=== PATIENT | male | born 1985 | race Caucasian/White ===

== ENCOUNTER 2020-12-06 12:09 | Inpatient (IN) | payer BC ==
[2020-12-06 13:02] LABS: #Basophils 0.1 10x3/uL (0.0-0.2); #Eosinphils 0.2 10x3/uL (0.0-0.5); #Monocytes 0.6 10x3/uL (0.0-1.1); #Neutrophils 3.2 10x3/uL (1.5-8.4); %Basophils 1.3 % (0.0-2.0); %Eosinophils 3.2 % (0.0-6.0); %Lymphocytes 33.1 % (18.0-47.0); %Monocytes 9.2 % (0.0-10.0); %Neutrophils 52.9 % (40.0-75.0); Hemoglobin 11.8 g/dL (13.5-17.5); Mean Corpuscular HGB CONC 34.5 g/dL (32.0-36.0); Mean Corpuscular Hemoglobin 31.4 pg (27.0-33.0); Mean Platelet Volume 11.9 fl (7.4-10.4); Platelet Count 203 10x3/uL (150-450); RBC Distribution Width 12.5 % (11.5-14.5); Red Blood Cell (RBC) Count 3.76 10x6/uL (4.32-5.72)
[2020-12-06 13:29] LABS: ALT (SGPT) 21 U/L (8-55); AST (SGOT) 16 U/L (5-34); Albumin 3.4 g/dL (3.5-5.0); Alkaline Phosphatase 109 U/L (40-110); Anion Gap 21 mmol/L (10-20); BUN (Urea Nitrogen) 24 mg/dL (8.9-20.6); Bilirubin, Total 0.4 mg/dL (0.2-1.2); CK (CPK) 200 U/L (30-200); Calc. Creatinine Clearance 0 mL/min (70-130); Calcium 9.7 mg/dL (7.8-10.44); Carbon Dioxide 21 mmol/L (22-29); Chloride 88 mmol/L (98-107); Globulin 2.4 g/dL (2.4-3.5); Potassium 5.6 mmol/L (3.5-5.1); Protein, Total 5.8 g/dL (6.0-8.3); Sodium 124 mmol/L (136-145)
[2020-12-06 13:32] LABS: Glucose 599 mg/dL (70-105)
[2020-12-06] MEDS ORDERED: Insulin Regular 300 UNITS/3 ML VIAL ONE ×2 (14:22→14:26)
[2020-12-06] MEDS ORDERED: HumaLOG 300 UNITS/3 ML VIAL ONE (14:24)
[2020-12-06 14:34] LABS: Actual Bicarbonate (HCO3v) 22 mEq/L (22-28); Base Excess -2.7 mEq/L (-2.0 to +3.0); Calcium, Ionized (venous) 1.23 mmol/L (1.16-1.32); Chloride (VBG) 90 mmol/L (98-106); Hemoglobin (Hb) 12.7 g/dL (13.2-17.3); Potassium (VBG) 5.05 mmol/L (3.70-5.30); Puncture Site Other Site; RapidComm Collect By lab; Sodium 123.6 mmol/L (133-146)
[2020-12-06 16:07] LABS: SARS-CoV-2 NAA Rapid Test Not Detected (NotDetected)
[2020-12-06] MEDS ORDERED: Ondansetron PF 4 MG/2 ML Vial IVP PRN (16:41)
[2020-12-06] MEDS ORDERED: Senokot S 8.6-50 MG TAB PO PRN (16:41)
[2020-12-06] MEDS ORDERED: Acetaminophen 325 MG TAB PO PRN (16:41)
[2020-12-06] MEDS ORDERED: NS 0.9% w/ 20 MEQ KCL 1,000 ML IV PRN ×2 (16:41)
[2020-12-06] MEDS ORDERED: D5 1/2 NS w/20 mEq KCL 1,000 ML IV PRN (16:41)
[2020-12-06] MEDS ORDERED: Electrolyte Replacement Protocol 1 EACH IVPB PRN (16:41)
[2020-12-06] MEDS ORDERED: Dextrose 5 %-0.45 % NaCl 1,000 ML IV PRN (16:41)
[2020-12-06] MEDS ORDERED: Sodium Chloride 0.9% 1,000 ML IV PRN ×4 (16:41)
[2020-12-06] MEDS ORDERED: Ondansetron ODT 4 MG TAB PO PRN (16:41)
[2020-12-06] MEDS ORDERED: HUMULIN R 100 UNITS in Sodium Chloride 0.9% 100 ML IVPB SCH (16:45)
[2020-12-06 17:05] VITALS: BMI 28.2
[2020-12-06] MEDS ORDERED: Labetalol HCl 100 MG/20 ML VIAL SLOW IVP PRN (17:12)
[2020-12-06] MEDS ORDERED: Amlodipine 5 MG TAB PO SCH (17:30)
[2020-12-06] MEDS ORDERED: Lisinopril 10 MG TAB PO SCH (17:30)
[2020-12-06 17:54] LABS: Anion Gap 12 mmol/L (10-20); BUN (Urea Nitrogen) 15 mg/dL (8.9-20.6); Calc. Creatinine Clearance 180 mL/min (70-130); Calcium 6.8 mg/dL (7.8-10.44); Carbon Dioxide 18 mmol/L (22-29); Chloride 110 mmol/L (98-107); Glucose 187 mg/dL (70-105); Potassium 2.9 mmol/L (3.5-5.1); Sodium 137 mmol/L (136-145)
[2020-12-06] MEDS ORDERED: Potassium Chloride 20 MEQ TAB PO SCH ×2 (18:15→22:00)
[2020-12-06] MEDS ORDERED: Dextrose 5% in Water 1,000 ML IV PRN (18:35)
[2020-12-06] MEDS ORDERED: Dextrose 50% Abboject 50 ML SYRINGE SLOW IVP PRN (18:35)
[2020-12-06] MEDS ORDERED: Lantus 1000 UNITS/10 ML VIAL SC SCH ×2 (19:45→21:00)
[2020-12-06 20:26] LABS: Bilirubin Neg (Negative); Blood, Urine 25 (Negative); Clarity Clear (Clear); Glucose, Urine (Dipstick) >=1000 mg/dL (Negative); Ketone, Urine 50 mg/dL (Negative); Leukocyte Negative (Negative); Nitrite Negative (Negative); Protein, Urine (Dipstick) 500 mg/dl (Neg-Trace); Specific Gravity, Urine 1.015 (1.002-1.036); Urobilinogen Normal mg/dL (Less than 2)
[2020-12-06 20:41] LABS: Bacteria/HPF Rare-Few HPF (None Seen); RBC/HPF 0-3 HPF (0-3); Squamous Epithelial 0-3 HPF (0-3); WBC/HPF 0-3 HPF (0-3)
[2020-12-06] MEDS ORDERED: Gabapentin 300 MG CAP PO SCH (21:00)
[2020-12-06 21:33] LABS: Anion Gap 11 mmol/L (10-20); BUN (Urea Nitrogen) 17 mg/dL (8.9-20.6); Calc. Creatinine Clearance 150 mL/min (70-130); Calcium 8.7 mg/dL (7.8-10.44); Carbon Dioxide 25 mmol/L (22-29); Chloride 101 mmol/L (98-107); Glucose 106 mg/dL (70-105); Potassium 3.8 mmol/L (3.5-5.1); Sodium 133 mmol/L (136-145)
[2020-12-07 01:23] LABS: Anion Gap 13 mmol/L (10-20); BUN (Urea Nitrogen) 16 mg/dL (8.9-20.6); Calc. Creatinine Clearance 156 mL/min (70-130); Calcium 8.3 mg/dL (7.8-10.44); Carbon Dioxide 22 mmol/L (22-29); Chloride 101 mmol/L (98-107); Glucose 168 mg/dL (70-105); Sodium 132 mmol/L (136-145)
[2020-12-07 04:24] LABS: #Basophils 0.1 10x3/uL (0.0-0.2); #Eosinphils 0.3 10x3/uL (0.0-0.5); #Monocytes 0.4 10x3/uL (0.0-1.1); #Neutrophils 1.5 10x3/uL (1.5-8.4); %Basophils 1.4 % (0.0-2.0); %Eosinophils 6.5 % (0.0-6.0); %Lymphocytes 47.2 % (18.0-47.0); %Neutrophils 34.7 % (40.0-75.0); Hemoglobin 10.5 g/dL (13.5-17.5); Mean Corpuscular HGB CONC 34.7 g/dL (32.0-36.0); Mean Corpuscular Hemoglobin 31.5 pg (27.0-33.0); Mean Platelet Volume 11.8 fl (7.4-10.4); Platelet Count 194 10x3/uL (150-450); RBC Distribution Width 12.6 % (11.5-14.5); Red Blood Cell (RBC) Count 3.33 10x6/uL (4.32-5.72); White Blood Cell (WBC) Count 4.3 10x3/uL (3.5-10.5)
[2020-12-07 04:34] LABS: Anion Gap 12 mmol/L (10-20); BUN (Urea Nitrogen) 15 mg/dL (8.9-20.6); Calc. Creatinine Clearance 162 mL/min (70-130); Calcium 8.2 mg/dL (7.8-10.44); Carbon Dioxide 23 mmol/L (22-29); Chloride 100 mmol/L (98-107); Glucose 227 mg/dL (70-105); Potassium 3.9 mmol/L (3.5-5.1); Sodium 131 mmol/L (136-145)
[2020-12-07 05:49] VITALS: BP 127/88; TEMP 97.9
[2020-12-07] MEDS ORDERED: Calcium Carbonate 600 MG + Vit D TAB PO SCH (08:00)
[2020-12-07] MEDS: HumaLOG 300 UNITS/3 ML VIAL SC PRN ×2 (08:25→11:25)
[2020-12-07] MEDS ORDERED: Enoxaparin Sodium 40 MG/0.4 ML SYRINGE SC SCH (09:00)
[2020-12-07] MEDS ORDERED: Lisinopril 10 MG TAB PO SCH (09:00)
[2020-12-07] MEDS ORDERED: Lantus 1000 UNITS/10 ML VIAL SC SCH (09:00)
== END 2020-12-07 13:21 | disposition home or self-care (01) | DRG 638 ==
LOC: CSHERS 12:09 → CSHICU 15:53
PROVIDERS: ADMIT Internal Medicine; ATTEND Internal Medicine
DX: E10.10 Type 1 diabetes mellitus with ketoacidosis without coma (principal); N17.9 Acute kidney failure, unspecified; E87.1 Hypo-osmolality and hyponatremia; Z20.822 Contact with and (suspected) exposure to COVID-19; E10.319 Type 1 diabetes mellitus with unspecified diabetic retinopathy without macular edema; E10.42 Type 1 diabetes mellitus with diabetic polyneuropathy; F17.210 Nicotine dependence, cigarettes, uncomplicated; E87.5 Hyperkalemia; I10 Essential (primary) hypertension; K21.9 Gastro-esophageal reflux disease without esophagitis; Z89.412 Acquired absence of left great toe; Z83.3 Family history of diabetes mellitus; Z82.49 Family history of ischemic heart disease and other diseases of the circulatory system; Z71.6 Tobacco abuse counseling; Z79.4 Long term (current) use of insulin
CPT/HCPCS: 36415; 36416; 71045; 80048; 80053; 81003; 81015; 82010; 82550; 82805; 84484; 85025; 93005; 96365; J1650; J1815; J3480; U0002